=== PATIENT | male | born 1995 | race Caucasian/White ===

== ENCOUNTER 2025-02-10 20:37 | Emergency (ER) | payer MEDICAID, SELFPAY ==
--- OUTSIDE RECORDS SUMMARY | 2025-02-07 13:43 | XMS_ITS | Encounter Summary ---
Author Organization [facility] Address [address] [place] [address] Care Team Providers Care Molder Trimmer Name Role Phone Jewel Ceballos MD Primary Care Provider [phone] Reason for Visit * Reason Comments Dizziness Low Blood Sugar Encounter Details Date Type Department Care Team (Late st Contact Info) Description 02/07/2025 1:43 PM CDT - 02/07/2025 3:20 PM CDT Emergency [facility] [address] [place] [address] Hypoglycemia (Primary Dx) Discharge Disposition: Home or Self Care Social History Tobacco Use Types Packs/Day Years Used Date Smoking Tobacco: Never Smokeless Tobacco: Current Chew Tobacco Cessation:Ready to Q uit: No; Counseling Given: Not Answered Comments:Zyn pouches Alcohol Use Standard Drinks/Week Comments Never 0 (1 standard drink = 0.6 oz pur e alcohol) Sex and Gender Information Value Date Recorded Sex Assigned at Not on file Legal 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 Gender Identity Not on file Sexual Orientation Not on file documented as of this encounter Last Filed Vital Signs Vital Sign Reading Time Taken Comments Blood Pressure 132/76 02/07/2025 3:06 PM CDT Pulse - - Temperature 36.9 C (98.4 F) 02/07/2025 3:06 PM CDT Respiratory Rate 16 02/07/2025 3:06 PM CDT Oxygen Saturation 97% 02/07/2025 3:06 PM CDT Inhaled Oxygen Concentration - - Weight 82.8 kg (182 lb 9.6 oz) 02/07/2025 1:47 P M CDT Height 172.7 cm (5' 8 ) 02/07/2025 1:47 PM CDT Body Mass Index 27.76 02/07/2025 1:47 PM CDT documented in this encounter Discharge Instructions * Discharge Instructions* Yumiko Tabares FNP - 02/07/2025 3:00 PM CDT Discussed complex carbs and keeping a diet log for his PCP appointment next week. Avoid fasting It would bed beneficial to check blood sugar if episodes occurs again prior to giving a food for intervention. * Attachments The following attachments cannot be sent through Care Everywhere. * Hypoglycemia (Icelandic) documented in this encounter ED Notes * Ofelia Nation RN - 02/07/2025 3:19 PM CDT Pt states he was feeling off again so provider asked him to eat peanut butter crackers and educatedhim on need to eat complex carbs. Pt reports he dayna went from 225 lbs to current weight and eats healthy and exercises everyday. * Ofelia Nation RN - 02/07/2025 1:54 PM CDT Pt states that he was in [facility] this am when he got dizzy and felt like he was going to pass out. There was a nurse at [facility] and checked his blood sugar after he drank mountain dew and ate chips to try and feel better. Blood sugar was 85 after mountain dew and chips. Pt states he has not followed up with Dr. Ceballos yet. Reports eating 2 eggs, 2 sausage and sugar free oatmeal everyday for breakfast. * Gaby Sebastian - 02/07/2025 1:51 PM CDT POC glucose is 134. Notified Ofelia Nation RN. * Filipe Johnson MD - 02/07/2025 1:38 PM CDT HISTORY OF PRESENT ILLNESS 29-year-old male patient with a past medical history of pyelonephritis and KIRIT. Patient reports he had an episode in [facility] this a.m. where he felt very dizzy weak diaphoretic and endorses a near syncopal episode. Patient improved after drinking a small amount of Mountain Dew and intake of chips. Patient reports approximately 20 minutes after this intake he had a capillary fingerstick and blood glucose checked by a emergency response worker at [facility]. Patient reports at that time his blood glucose was 84 and symptoms are improving. The patient reports he has intentional weight loss and is closing monitoring his diet avoid carbs and sugars. Patient reports high levels of stress and previous . History provided by: The patient park interpreter used: No Arrived by: Private vehicle Arrived from: Home Dizziness Quality: Lightheadedness Severity: Moderate Duration: 2 weeks Timing: Intermittent Progression: Resolved Chronicity: Recurrent Relieved by: Food Worsened by: Standing up Associated symptoms: no blood in stool, no diarrhea, no headaches, no nausea and no shortness of breath Low Blood Sugar Diabetic status: Non-diabetic Associated symptoms: dizziness Associated symptoms: no shortness of breath PAST MEDICAL HISTORY REVIEWED MEDICAL: Patient has no past medical history on file. SURGICAL: Patient has no past surgical history on file. ALLERGIES Patient has no known allergies. PHYSICAL EXAM INITIAL VS BP: 131/71 (02/07/25 134), Heart Rate: 86 bpm (02/07/251346), Resp: 16 (02/07/251346), Pulse: (not recorded), Temp: 98.4 ??F (36.9 ??C) (02/07/251346), Temp src: Temporal (02/07/251346), SpO2: 94 % (02/07/251346), Height: 5' 8 (172.7 cm) (02/07/251346), Weight: 82.8 kg (182 lb 9.6 oz) (02/07/251346), BMI (Calculated): (!) 27.76 (02/07/251346) No LMP for male patient. Physical Exam Constitutional: Appearance: Normal appearance. HENT: Head: Normocephalic and atraumatic. Mouth/Throat: Mouth: Mucous membranes are moist. Eyes: Pupils: Pupils are equal, round, and reactive to light. Cardiovascular: Rate and Rhythm: Normal rate and regular rhythm. Pulmonary: Effort: Pulmonary effort is normal. Abdominal: General: Abdomen is flat. There is no distension. Palpations: Abdomen is soft. There is no mass. Tenderness: There is no abdominal tenderness. Musculoskeletal: General: Normal range of motion. Cervical back: Normal range of motion. Skin: General: Skin is warm. Capillary Refill: Capillary refill takes less than 2 seconds. Neurological: General: No focal deficit present. Mental Status: He is alert. Psychiatric: Mood and Affect: Mood normal. DIAGNOSTICS LAB: POC GLUCOSE - Abnormal Result Value GLUCOSE POC 134 (*) SPECIMEN SOURCE, GLUCOSE POC Whole Blood URINALYSIS WITH REFLEX MICROSCOPIC - Normal COLOR UA Yellow CLARITY UA Clear SPECIFIC GRAVITY UA 1.010 PH UA 6.5 LEUKOCYTE ESTERASE UA Negative NITRITE UA Negative PROTEIN UA Negative GLUCOSE UA Negative KETONES UA Negative UROBILINOGEN UA 0.2 BILIRUBIN UA Negative BLOOD UA Negative POC GLUCOSE GLUCOSE POC 88 SPECIMEN SOURCE, GLUCOSE POC Whole Blood RADIOLOGY: No orders to display EKG: PROCEDURES Procedures MEDICAL DECISION MAKING AND PLAN OF CARE ED Course as of 02/07/25 2159 Sun Feb 07, 2025 1425 Pendings UA [PH] 1442 Urine sample obtained. Pending results for DC. Educated on complex carbs daily [PH] 1451 Negative orthostatic blood pressure. Ua stable. [PH] ED Course User Index [PH] Yumiko Tabares FNP Medical Decision Making 29-year-old male patient presented with concerns of hypoglycemic event while at [facility] this a.m. Patient does endorse weight loss which is intentional avoiding sugary and carbohydrate foods. Patient was given Mountain Dew and chips approximately 20 minutes after intake blood glucose was taken by a personnel at [facility] noted to be 84. He was recommended he present to ED for evaluation. In presentation to ED blood sugar was 134 patient reports he feels fine at this time. Did review urine with pasthistory of pyelonephritis which was negative for infection ketones and glucose. Patient educated oncomplex carbohydrates and following up with his PCP next week. May be beneficial for behavioral health evaluation. Amount and/or Complexity of Data Reviewed Labs: ordered. Clinical Scoring & Consults There are no discharge medications for this patient. LAST VS BP: 132/76 (02/07/25 1506), Heart Rate: (!) 56 bpm (02/07/25 1506), Resp: 16 (02/07/25 1506), Pulse: (not recorded), Temp: 98.4 ??F (36.9 ??C) (02/07/25 1506), Temp src: Oral (02/07/25 1506), SpO2: 97 % (02/07/25 1506) CLINICAL IMPRESSION Diagnosis Diagnosis Comment Added By Time Added Hypoglycemia [E16.2] Yumiko Tabares FNP 02/07/2025 2:59 PM DISPOSITION, EDUCATION AND MEDICATION RECONCILIATION Medications reconciled. See after visit summary for patient education on discharged patients. ED Disposition ED Disposition Discharge Condition Stable User Yumiko Tabares FNP Date/Time Sun Feb 07, 2025 2:58 PM Comment -- ATTESTATION STATEMENTS This document was partially created using [employer] customer records division supervisor software (there can be inherent customer records division supervisor errors) using [employer]. Efforts have been done to assure the accuracy of the customer records division supervisor. If there is a discrepancy please let the author know. documented in this encounter Miscellaneous Notes * Gen AI SWETA - GENERATIVE AI HANDOFF NOTE - 02/09/2025 12:21 AM CDT ## ER_course: ## # DIAGNOSIS: Hypoglycemia. # The patient, a 29-year-old male with a history of pyelonephritis and acute kidney injury (KIRIT), presented to the emergency department after experiencing dizziness, weakness, and a near syncopal episode at [facility]. He reported improvement after consuming Mountain Dew and chips, with a subsequent blood glucose reading of 84. Upon evaluation in the ED, his blood glucose was 134, and he felt fine at that time. # During the ER visit, the patient was educated on the importance of consuming complex carbohydrates. He has been intentionally losing weight by avoiding sugary and carbohydrate foods. The urinalysis was negative for infection, ketones, and glucose. # Abnormal findings included an initial [id number] glucose reading of 134. The patient's blood pressure was stable, and orthostatic blood pressure was negative. ## Follow_up_orders: ## # The patient was advised to follow up with his primary care provider (PCP) next week. # Behavioral health evaluation may be beneficial. # Urine sample results are pending at discharge. # The patient was educated on the need to consume complex carbohydrates daily. ## Home_Situation: ## # The patient arrived at the emergency department by private vehicle from home. There are no noted transportation, caregiver support, financial, or language barriers affecting follow-up care. documented in this encounter Plan of Treatment Upcoming Encounters Date Type Department Care Team (Late st Contact Info) Description 02/12/2025 11:20 AM CDT [facility] [address] [place] [address] Gabby Núñez NP [address] [place] [address] documented as of this encounter Procedures Procedure Name Priority Date/Time Associated Diagnosis Comments POC GLUCOSE Stat 02/07/2025 3:13 PM CDT URINALYSIS W/REFLEX MICROSCOPIC Stat 02/07/2025 2:32 PM CDT POC GLUCOSE Stat 02/07/2025 1:49 PM CDT documented in this encounter Results * POC GLUCOSE (02/07/2025 3:13 PM CDT) GLUCOSE POC 88 74 - 99 mg/dL 02/07/2025 3:13 PM CDT [facility] SPECIMEN SOURCE, GLUCOSE POC Whole Blood 02/07/2025 3:13 PM CDT [facility] Blood, whole 02/07/2025 3:13 PM CDT 02/07/2025 3:21 PM CDT us Interface Provider Poct POINT OF CARE TESTING Fi nal Result [facility] CLIA # [id number] [address] [place] [id number] * URINALYSIS WITH REFLEX MICROSCOPIC (02/07/2025 2:32 PM CDT) COLOR UA Yellow Pale to Dark Yellow 02/07/2025 2:48 PM CDT [facility] CLARITY UA Clear Clear 02/07/2025 2:48 PM CDT [facility] SPECIFIC GRAVITY UA 1.010 1.003 - 1.035 02/07/2025 2:48 PM CDT [facility] PH UA 6.5 5.0 - 8.0 02/07/2025 2:48 PM CDT [facility] LEUKOCYTE ESTERASE UA Negative Negative 02/07/2025 2:48 PM CDT [facility] NITRITE UA Negative Negative 02/07/2025 2:48 PM CDT [facility] PROTEIN UA Negative Negative 02/07/2025 2:48 PM CDT [facility] GLUCOSE UA Negative Negative 02/07/2025 2:48 PM CDT [facility] KETONES UA Negative Negative 02/07/2025 2:48 PM CDT [facility] UROBILINOGEN UA 0.2 <2.0 mg/dL 2:48 PM CDT [facility] BILIRUBIN UA Negative Negative 02/07/2025 2:48 PM CDT [facility] BLOOD UA Negative Negative 02/07/2025 2:48 PM CDT [facility] Urine URINE SPECIMEN OBTAINED BY CLEAN CATCH PROCEDURE / Unknown 02/07/2025 2:32 PM CDT 02/07/2025 2:45 PM CDT us Yumiko Tabares COMMERCIAL LOAN CLOSER URINE ORDERABLES [id number] [address] [place] [id number] * (ABNORMAL) POC GLUCOSE (02/07/2025 1:49 PM CDT) GLUCOSE POC 134(H) 74 - 99 mg/dL 02/07/2025 1:49 PM CDT [facility] SPECIMEN SOURCE, GLUCOSE POC Whole Blood 02/07/2025 1:49 PM CDT [facility] Blood, whole 02/07/2025 1:49 PM CDT 02/07/2025 1:57 PM CDT us Interface Provider Poct POINT OF CARE TESTING Fi nal Result [facility] [id number] [address] [place] [id number] documented in this encounter Visit Diagnoses Diagnosis Hypoglycemia- Primary Hypoglycemia, unspecified documented in this encounter Active and Recently Administered Medications Care Teams Molder Trimmer Relationship Specialty Start Date End Date Jewel Ceballos MD [address] [id number] PCP - General Family Practice 06/17/24 documented as of this encounter
--- OUTSIDE RECORDS SUMMARY | 2025-02-09 21:50 | XMS_ITS | Encounter Summary ---
Author Organization [facility] Address [address] [place] [address] Care Team Providers Care Mathematical Sciences Professor Name Role Phone Jewel Ceballos MD Primary Care Provider [phone] Reason for Visit * Reason Comments Dizziness Anxiety Extremity Weakness Encounter Details Date Type Department Care Team (Late st Contact Info) Description 02/09/2025 9:50 PM CDT - 02/09/2025 11:34 PM CDT Emergency [facility] Emergency Medicine [address] [place] [address] Kaveh Christensen MD [address] [place] [address] [place] [address] Anxiety (Primary Dx) Discharge Disposition: Home or Self Care Social History Tobacco Use Types Packs/Day Years Used Date Smoking Tobacco: Never Smokeless Tobacco: Current Chew Comments:Zyn pouches Alcohol Use Standard Drinks/Week Comments Never 0 (1 standard drink = 0.6 oz pur e alcohol) Sex and Gender Information Value Date Recorded Sex Assigned at Not on file 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 Gender Identity Not on file Sexual Orientation Not on file documented as of this encounter Last Filed Vital Signs Vital Sign Reading Time Taken Comments Blood Pressure 131/76 02/09/2025 11:20 PM CDT Pulse 53 02/09/2025 11:20 PM CDT Temperature 37.1 C (98.8 F) 02/09/2025 11:20 PM CDT Respiratory Rate 19 02/09/2025 11:20 PM CDT Oxygen Saturation 99% 02/09/2025 11:20 PM CDT Inhaled Oxygen Concentration - - Weight 81.6 kg (180 lb) 02/09/2025 9:53 PM CDT Height 175.3 cm (5' 9 ) 02/09/2025 9:53 PM CDT Body Mass Index 26.58 02/09/2025 9:53 PM CDT documented in this encounter Discharge Instructions * Attachments The following attachments cannot be sent through Care Everywhere. * Anxiety Disorders: General Info (Croatian) documented in this encounter ED Notes * Randi Street RN - 02/09/2025 10:59 PM CDT Patient requested something to eat. MD Christensen notified who gave okay for food/drink. Patient provided peanut butter crackers and water * Nayeli Schneider RCP - 02/09/2025 10:30 PM CDT EKG completed. Results given to Dr. Christensen and scanned into [facility]. * Randi Street RN - 02/09/2025 10:26 PM CDT Radiology called for imaging. Respiratory therapy called for EKG * Randi Street RN - 02/09/2025 9:52 PM CDT Patient arrival to emergency room. Patient assisted to room via wheelchair. Patient reports he is feeling leg cramping/weakness and has concerns that he is having low blood sugar or an anxiety attack. Blood glucose obtained by staff. Patient reports he is also feeling nauseous at times. Patient reports he was concerned about his blood pressure being elevated earlier, vitals updated as he was placed on the monitor. Patient also reports he quit smoking marijuana 1 week ago, and he thinks this could be connected * Kaveh Christensen MD - 02/09/2025 9:50 PM CDT HISTORY OF PRESENT ILLNESS Harjit Santana, a 29 y.o. male presents to the ED with a Chief Complaint of Dizziness, Anxiety, and Extremity Weakness Subjective This patient is a 29-year-old white male who presents to the emergency department stating that his blood pressure was running high tonight and he felt somewhat weak. He states I felt like I was going to . Did not have any chest pain. Had some palpitations. Patient states he was here for dizziness about 3 weeks ago and had blood work done which was all normal. Patient states he has been having near syncopal episodes at times. Had 1 episode in latter day. Patient has been under a lot of stress recently with family and work. REVIEW OF SYSTEMS Review of Systems Constitutional: Negative for appetite change, chills, diaphoresis, fatigue and fever. HENT: Negative for congestion, ear pain, postnasal drip, rhinorrhea, sinus pressure and sore throat. Eyes: Negative for pain and visual disturbance. Respiratory: Negative for cough, chest tightness, shortness of breath and wheezing. Cardiovascular: Negative for chest pain, palpitations and leg swelling. Gastrointestinal: Negative for abdominal distention, abdominal pain, blood in stool, constipation, diarrhea, nausea and vomiting. Genitourinary: Negative for decreased urine volume, difficulty urinating, dysuria, flank pain, frequency, hematuria, testicular pain and urgency. Musculoskeletal: Negative for arthralgias, back pain, joint swelling, myalgias, neck pain and neck stiffness. Skin: Negative for rash. Neurological: Positive for dizziness and weakness. Negative for seizures, syncope, speech difficulty, light-headedness, numbness and headaches. Hematological: Negative for adenopathy. Psychiatric/Behavioral: Negative for behavioral problems, confusion, decreased concentration, dysphoric mood, self-injury, sleep disturbance and suicidal ideas. The patient is nervous/anxious. All other systems reviewed and are negative. PAST MEDICAL HISTORY REVIEWED MEDICAL: Patient has no past medical history on file. SURGICAL: Patient has no past surgical history on file. FAMILY: Patient's family history is not on file. SOCIAL: reports that he has never smoked. His smokeless tobacco use includes chew. He reports that he does not currently use drugs after having used the following drugs: Marijuana. He reports being sexually active and has had partner(s) who are female. He reports that he does not drink alcohol. No history on file. Social History Other Topics Concern Not on file ALLERGIES Patient has no known allergies. HOME MEDICATIONS There are no discharge medications for this patient. Objective PHYSICAL EXAM INITIAL VS BP: (!) 154/82 (02/09/252152), Heart Rate: 65 bpm (02/09/252152), Resp: 16 (02/09/252152), Pulse: 65 (02/09/252152), Temp: 98.8 ??F (37.1 ??C) (02/09/252152), Temp src: Temporal (02/09/252152),SpO2: 97 % (02/09/252152), Height: 5' 9 (175.3 cm) (02/09/252152), Weight: 81.6 kg (180 lb) (02/09/252152), BMI (Calculated): (!) 26.55 (02/09/252152) No LMP for male patient. Physical Exam Vitals and nursing note reviewed. Constitutional: General: He is not in acute distress. Appearance: Normal appearance. He is not ill-appearing. HENT: Head: Normocephalic and atraumatic. Eyes: Conjunctiva/sclera: Conjunctivae normal. Pupils: Pupils are equal, round, and reactive to light. Cardiovascular: Rate and Rhythm: Normal rate and regular rhythm. Pulmonary: Effort: Pulmonary effort is normal. No respiratory distress. Breath sounds: Normal breath sounds. Abdominal: General: Abdomen is flat. Bowel sounds are normal. Palpations: Abdomen is soft. Tenderness: There is no abdominal tenderness. Musculoskeletal: General: No tenderness. Normal range of motion. Skin: General: Skin is warm and dry. Neurological: General: No focal deficit present. Mental Status: He is alert and oriented to person, place, and time. Psychiatric: Mood and Affect: Mood normal. Behavior: Behavior normal. DIAGNOSTICS LAB: CBC WITH DIFFERENTIAL - Abnormal Result Value WBC 9.1 RBC 5.40 HEMOGLOBIN 14.6 HEMATOCRIT 42.7 MCV 79.1 MCH 27.0 MCHC 34.2 RDW 12.5 RDW-STDEV 35.5 (*) PLATELETS 213 MPV 10.2 NEUTROPHILS 74 (*) LYMPHOCYTES 18 (*) MONOCYTES 6 EOSINOPHILS 2 BASOPHILS 0 IMMATURE GRANULOCYTES 0 NEUTROPHIL ABSOLUTE 6.73 (*) LYMPHOCYTE ABSOLUTE 1.65 MONOCYTE ABSOLUTE 0.56 EOSINOPHIL ABSOLUTE 0.14 BASOPHILS ABSOLUTE 0.04 IMMATURE GRANULOCYTES ABSOLUTE 0.02 COMPREHENSIVE METABOLIC PANEL - Abnormal SODIUM 140 POTASSIUM 3.7 CHLORIDE 102 CO2 25 CALCIUM 9.7 BUN 15 CREATININE 0.96 GLUCOSE 106 (*) TOTAL PROTEIN 7.4 ALBUMIN 4.9 BILIRUBIN TOTAL 0.4 ALKALINE PHOSPHATASE 67 AST 22 ALT 29 GFR >60 ANION GAP 13 POC GLUCOSE - Abnormal GLUCOSE POC 118 (*) SPECIMEN SOURCE, GLUCOSE POC Whole Blood BRAIN NATRIURETIC PEPTIDE, BNP OR PROBNP - Normal PROBNP, N TERMINAL <36 RADIOLOGY: No orders to display EKG: PROCEDURES Procedures MEDICAL DECISION MAKING AND PLAN OF CARE Medical Decision Making Patient's exam is benign. EKG normal. Chest x-ray normal. CBC and CMP normal. BNP less than 36. Blood sugar 118. Patient's symptoms are likely related to anxiety. I recommended he follow-up with his primary care provider for further workup and management. He was discharged in stable condition. Amount and/or Complexity of Data Reviewed Radiology: ordered. ECG/medicine tests: ordered. Clinical Scoring & Consults There are no discharge medications for this patient. LAST VS BP: 131/76 (02/09/252319), Heart Rate: (!) 55 bpm (02/09/252319), Resp: 19 (02/09/252319), Pulse: (!) 53 (02/09/252319), Temp: 98.8 ??F (37.1 ??C) (02/09/252319), Temp src: Temporal (02/09/252319), SpO2: 99 % (02/09/252319) CLINICAL IMPRESSION Diagnosis Diagnosis Comment Added By Time Added Anxiety [F41.9] Kaveh Christensen MD 02/09/2025 11:25 PM DISPOSITION, EDUCATION AND MEDICATION RECONCILIATION Medications reconciled. See after visit summary for patient education on discharged patients. ED Disposition ED Disposition Discharge Condition Stable User Kaveh Christensen MD Date/Time SatFeb 09, 2025 11:24 PM Comment -- ATTESTATION STATEMENTS documented in this encounter Miscellaneous Notes * Gen AI SWETA - GENERATIVE AI HANDOFF NOTE - 02/10/2025 10:38 PM CDT ## ER_course: ## # DIAGNOSIS: Anxiety. Harjit Santana, a 29-year-old male, presented to the ED with dizziness, anxiety, and extremity weakness. He reported high blood pressure, leg cramping, weakness, and nausea. He was concerned about low blood sugar or an anxiety attack. The patient had a history of stress related to family and work and had recently quit smoking marijuana. # During the ER visit, the following abnormalities were noted: Elevated blood pressure at 154/82, BMI of 26.55, and elevated glucose levels (POC glucose 118). The CBC showed elevated neutrophils at 74% and an absolute neutrophil count of 6.73. The EKG and chest X-ray were normal. The patient's symptoms were attributed to anxiety, and he was discharged in stable condition. ## Follow_up_orders: ## # The patient was advised to follow up with his primary care provider for further workup and management of anxiety. No new prescriptions or changes to home medications were made. No pending tests or imaging were noted at discharge. ## Home_Situation: ## # No specific factors potentially impairing follow-up care were documented. The patient did not report any issues with transportation, caregiver support, finances, or language barriers. documented in this encounter Plan of Treatment Upcoming Encounters Date Type Department Care Team (Late st Contact Info) Description 02/12/2025 11:20 AM CDT Office Visit [facility] [address] [place] [address] Gabby Núñez NP [address] [place] [address] documented as of this encounter Procedures Procedure Name Priority Date/Time Associated Diagnosis Comments XR CHEST PA OR AP 1 VW Stat 5 10:49 PM CDT CBC WITH DIFFERENTIAL Stat 02/09/2025 10:47 PM CDT BRAIN NATRIURETIC PEPTIDE, BNP OR PROBNP Stat 02/09/2025 10:47 PM CDT COMPREHENSIVE METABOLIC PANEL Stat 02/09/2025 10:47 PM CDT POC GLUCOSE Stat 02/09/2025 9:56 PM CDT documented in this encounter Results * XR CHEST PA OR AP 1 VW (02/09/2025 10:49 PM CDT) Anatomical Region Laterality Modality Chest Computed Radiogr aphy 02/09/2025 10:4 9 PM CDT Impressions 02/10/2025 12:38 AM CDT IMPRESSION: No evidence of acute cardiopulmonary disease. Narrative 02/10/2025 12:38 AM CDT EXAM: XR CHEST PA OR AP 1 VW DATE/TIME OF EXAM: 02/09/2025 10:49 PM REASON FOR EXAM: Palpitations DIAGNOSIS: See Reason for Exam COMPARISON: None. FINDINGS: - Lines/tubes: None. - Cardiomediastinal: Contours are within normal limits. - Lungs/pleura: Radiographically the lungs appear clear. Hemidiaphragms are well visualized; no appreciable pleural effusion or pneumothorax. - Bones and soft tissues: No acute abnormalities. - Additional comments: None. Procedure Note Tin Santiago MD - 02/10/2025 EXAM: XR CHEST PA OR AP 1 VW DATE/TIME OF EXAM: 02/09/2025 10:49 PM REASON FOR EXAM: Palpitations DIAGNOSIS: See Reason for Exam COMPARISON: None. FINDINGS: - Lines/tubes: None. - Cardiomediastinal: Contours are within normal limits. - Lungs/pleura: Radiographically the lungs appear clear. Hemidiaphragms are well visualized; no appreciable pleural effusion or pneumothorax. - Bones and soft tissues: No acute abnormalities. - Additional comments: None. IMPRESSION: No evidence of acute cardiopulmonary disease. Kaveh Christensen MD DIAGNOSTIC IMAGING ORDER [place] Final Result * BRAIN NATRIURETIC PEPTIDE, BNP OR PROBNP (02/09/2025 10:47 PM CDT) PROBNP, N TERMINAL <36 0 - 125 pg/mL 02/09/2025 11:13 PM CDT [facility] Comment: INTERPRETIVE COMMENT based on diagnosis: Diagnostic NT pro-BNP cutoffs for Heart Failure in the absence of renal failure is suggested for the following ranges <75 years: <125 pg/mL >=75 years: <450 pg/mL Exclusionary rule out cut-point for Acute Decompensated Heart Failure(ADHF) All ages: <300 pg/mL Diagnostic NT pro-BNP cutoffs for Acute Decompensated Heart Failure(ADHF) in the absence of renal failure is suggested for the following ages <50 years: > 450 pg/mL 50-75 years: > 900 pg/mL >75 years: >1800 pg/mL Blood BLOOD SPECIMEN / Unknown Collection / Unknown 02/09/2025 10:47 PM CDT 02/09/2025 10:55 PM CDT us Kaveh Christensen MD CHEMISTRY ORDERABLES Fin al [id number] [address] [place] [address] * (ABNORMAL) COMPREHENSIVE METABOLIC PANEL (02/09/2025 10:47 PM CDT) Pathologist [facility] SODIUM 140 136 - 145 mmol/L 02/09/2025 11:13 PM CDT [facility] POTASSIUM 3.7 3.5 - 5.1 mmol/L 02/09/2025 11:13 PM CDT [facility] CHLORIDE 102 98 - 107 mmol/L 02/09/2025 11:13 PM CDT [facility] CO2 25 22 - 29 mmol/L 02/09/2025 11:13 PM CDT [facility] CALCIUM 9.7 8.6 - 10.0 mg/dL 02/09/2025 11:13 PM T [facility] BUN 15 6 - 20 mg/dL 02/09/2025 11:13 PM [facility] CREATININE 0.96 0.67 - 1.17 mg/dL 02/09/2025 11:13 PM [facility] GLUCOSE 106(H) 74 - 99 mg/dL 02/09/2025 11:13 PM [facility] TOTAL PROTEIN 7.4 6.6 - 8.7 g/dL 02/09/2025 11:13 PM [facility] ALBUMIN 4.9 3.5 - 5.2 g/dL 02/09/2025 11:13 PM [facility] BILIRUBIN TOTAL 0.4 0.0 - 1.2 mg/dL 02/09/2025 11:13 PM [facility] ALKALINE PHOSPHATASE 67 40 - 129 U/L 02/09/2025 11:13 PM [facility] AST 22 0 - 50 U/L 02/09/2025 11:13 PM [facility] ALT 29 0 - 50 U/L 02/09/2025 11:13 PM [facility] GFR >60 >=60 mL/min/1.7 3 sq meter 02/09/2025 11:13 PM [facility] Comment:eGFR calculated with 2020 CKD-EPI equation. Vegetarian diet, extremely high or low muscle mass, and may affect results. Cystatin C with Glomerular Filtration Rate is a suitable alternative for these patients. ANION GAP 13 5 - 20 mmol/L 02/09/2025 11:13 PM [facility] Blood BLOOD SPECIMEN / Unknown Collection / Unknown 02/09/2025 10:47 PM CDT 02/09/2025 10:55 PM CDT us Kaveh Christensen MD CHEMISTRY ORDERABLES Fin al Result [facility] CLIA # [id number] [address] [place] [id number] * (ABNORMAL) CBC WITH DIFFERENTIAL (02/09/2025 10:47 PM CDT) WBC 9.1 4.2 - 9.1 K/uL 02/09/2025 11:01 PM [facility] RBC 5.40 4.63 - 6.08 M/uL 02/09/2025 11:01 PM [facility] HEMOGLOBIN 14.6 13.7 - 17.5 g/dL 02/09/2025 11:01 PM [facility] HEMATOCRIT 42.7 40.1 - 51.0 % 02/09/2025 11:01 PM [facility] MCV 79.1 79.0 - 92.2 fL 02/09/2025 11:01 PM [facility] MCH 27.0 25.7 - 32.2 pg 02/09/2025 11:01 PM [facility] MCHC 34.2 32.3 - 36.5 g/dL 02/09/2025 11:01 PM [facility] RDW 12.5 11.0 - 14.5 % 02/09/2025 11:01 PM [facility] RDW-STDEV 35.5(L) 36.9 - 56.9 fL 02/09/2025 11:01 PM [facility] PLATELETS 213 130 - 400 K/uL 02/09/2025 11:01 PM [facility] MPV 10.2 10.0 - 14.8 fL 02/09/2025 11:01 PM [facility] NEUTROPHILS 74(H) 34 - 68 % 02/09/2025 11:01 PM [facility] LYMPHOCYTES 18(L) 22 - 53 % 02/09/2025 11:01 PM [facility] MONOCYTES 6 5 - 12 % 02/09/2025 11:01 PM [facility] EOSINOPHILS 2 1 - 7 % 02/09/2025 11:01 PM [facility] BASOPHILS 0 0 - 1 % 02/09/2025 11:01 PM [facility] IMMATURE GRANULOCYTES 0 % 02/09/2025 11:[address] [facility] NEUTROPHIL ABSOLUTE 6.73(H) 1.78 - 5.38 K/uL 02/09/2025 11:01 PM CDT [facility] LYMPHOCYTE ABSOLUTE 1.65 1.20 - 3.40 K/uL 02/09/2025 11:01 PM T [facility] MONOCYTE ABSOLUTE 0.56 0.30 - 0.82 K/uL 02/09/2025 11:01 PM [facility] EOSINOPHIL ABSOLUTE 0.14 0.04 - 0.54 K/uL 02/09/2025 11:01 PM T [facility] BASOPHILS ABSOLUTE 0.04 0.01 - 0.08 K/uL 02/09/2025 11:01 PM [facility] IMMATURE GRANULOCYTES ABSOLUTE 0.02 K/uL 02/09/2025 11:01 PM [facility] Blood BLOOD SPECIMEN / Unknown Collection / Unknown 02/09/2025 10:47 PM CDT 02/09/2025 10:55 PM CDT us Kaveh Christensen MD HEMATOLOGY ORDERABLES Fi nal Result [facility] CLIA # [id number] [address] [place] [address] * (ABNORMAL) POC GLUCOSE (02/09/2025 9:56 PM CDT) GLUCOSE POC 118(H) 74 - 99 mg/dL 02/09/2025 9:56 PM CDT [facility] SPECIMEN SOURCE, GLUCOSE POC Whole Blood 02/09/2025 9:56 PM CDT [facility] Blood, whole 02/09/2025 9:56 PM CDT 02/09/2025 10:04 PM CDT us Interface Provider Poct POINT OF CARE TESTING Fi nal Result [facility] CLIA # [id number] [address] [place] [address] [id number] documented in this encounter Visit Diagnoses Diagnosis Anxiety- Primary Anxiety state, unspecified documented in this encounter Care Teams Mathematical Sciences Professor Relationship Specialty Start Date End Date Jewel Ceballos MD [address] [address] PCP - General Family Practice 06/17/24 documented as of this encounter
--- OUTSIDE RECORDS SUMMARY | 2025-02-10 15:20 | XMS_ITS | Encounter Summary ---
Author Organization [facility] Address [address] [place] [address] Care Team Providers Care Supervisor Coil Winding Name Role Phone Jewel Ceballos MD Primary Care Provider [phone] [phone] Reason for Referral * Cardiology Testing (Routine) - Open Specialty Diagnoses / Procedures Referred By Kel chiang Referred To Contact Respiratory Therapy Diagnoses Anxiety state Procedures HOLTER MONITOR Griselda Garcia FNP [address] [place] [phone] Phone: tel: fax: [facility] Res[facility] [place] [address] [address] Phone: tel: fax: Referral ID Status Reason Start Date Expiration Date Visits Re quested Visits Authorized [id number] Open 02/10/2025 03/13/2026 1 1 Reason for Visit * Reason Comments ER Follow Up Blood Sugar Problem Encounter Details Date Type Department Care Team (Late st Contact Info) Description 02/10/2025 3:20 PM CDT Office Visit [facility] [place] [address] [address] Griselda Garcia FNP [address] [place] [phone] Anxiety state (Primary Dx); Dysuria; Hypoglycemia Social History Tobacco Use Types Packs/Day Years Used Date Smoking Tobacco: Never Smokeless Tobacco: Current Chew Comments:Zyn pouches Alcohol Use Standard Drinks/Week Comments Never 0 (1 standard drink = 0.6 oz pur e alcohol) Sex and Gender Information Value Date Recorded Sex Assigned at Not on file Legal 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 Gender Identity Not on file Sexual Orientation Not on file documented as of this encounter Last Filed Vital Signs Vital Sign Reading Time Taken Comments Blood Pressure 138/79 02/10/2025 3:20 PM CDT Pulse 58 02/10/2025 3:20 PM CDT Temperature 36.7 C (98 F) 02/10/2025 3:20 PM CDT Respiratory Rate 16 02/10/2025 3:20 PM CDT Oxygen Saturation 100% 02/10/2025 3:20 PM CDT Inhaled Oxygen Concentration - - Weight 82.6 kg (182 lb 3.2 oz) 02/10/2025 3:20 P M CDT Height 175.3 cm (5' 9 ) 02/10/2025 3:20 PM CDT Body Mass Index 26.91 02/10/2025 3:20 PM CDT documented in this encounter Progress Notes * Griselda Garcia, EMT BASIC - 02/10/2025 3:[address] [facility] [place] 02/10/2025 Subjective: Harjit Santana is a 29 y.o. male who comes today for evaluation of ER Follow Up and Blood Sugar Problem . History of Present Illness The patient is a 29-year-old male who presents today with concerns about blood sugar issues and a possible urinary tract infection (UTI). He was seen in the ER last night for concerns about his blood sugar, but his blood sugar and other labs were normal. He was offered reassurance and discharged home. A chest x-ray performed in the ER did not show any concerning findings. He was also seen in the ER on 02/07/2025, when he experienced l ightheadedness and dizziness during taoist. At that time, he was given Mountain Dew and crackers, which resolved his symptoms. A urinalysis (UA) performed during that visit was normal. His main symptoms are dizziness, anxiety, and weakness. He has not had a Holter monitor and may be experiencing anabnormal heart rhythm. His EKG from last night's ER visit showed sinus bradycardia with a heart rate of 56. Today, his heart rate is 58. He may benefit from a Holter monitor to determine if he is becoming bradycardic. He reports that his symptoms began approximately 3 weeks ago with episodes of dizziness and unusualsensations. Despite being advised to consult with Dr. Ceballos, he was unable to do so due to work commitments. He recalls an incident last Saturday where he fainted at a movie theater but recovered after eating. A similar episode occurred the following day at [employer], where he experienced shaking, difficulty walking, paleness, and clamminess. His blood sugar was reported to be around 50 at that time. He was taken to the ER by ambulance, where he was given Mountain Dew, Sprite, and potato chips, which raised his blood sugar to 86. He has been monitoring his blood sugar at home since Saturday, withreadings ranging from 88 to 134. He also reports feeling jittery, almost like having a panic or anxiety attack, and experiencing chest pain and severe leg cramps. He describes a lack of appetite despite feeling hungry, and a sensation of impending vomiting when attempting to eat. He has not experienced these symptoms for several months. He has a history of borderline blood sugar levels as a childbut has not had any recent issues until now. He reports no urinary symptoms but mentions temporary right-sided back pain while showering today. He has a history of high-stress work environments and a recent kidney infection. He has been off cannabis for about 8 to 10 days after using it daily for 2 years. He also consumed a cup of coffee yesterday, which is unusual for him as he had previously eliminated caffeine from his diet. 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 Coffee/Tea/Caffeine-containing Drinks: He consumed a cup of coffee yesterday after eliminating caffeine from his diet. Review of Systems Constitutional: Negative for chills, fever and malaise/fatigue. HENT: Negative for congestion, ear pain and sore throat. Eyes: Negative for blurred vision. Respiratory: Negative for cough and shortness of breath. Cardiovascular: Negative for chest pain. Gastrointestinal: Negative for abdominal pain, constipation, diarrhea, nausea and vomiting. Genitourinary: Negative for dysuria and urgency. Musculoskeletal: Negative for joint pain and myalgias. Neurological: Positive for dizziness. Negative for headaches. Psychiatric/Behavioral: The patient is nervous/anxious. All other systems reviewed and are negative. Objective: Vitals: 02/10/25 1520 Temp: 98 ??F (36.7 ??C) Pulse: (!) 58 BP: 138/79 Resp: 16 SpO2: 100% Physical Exam Constitutional: General: He is not in acute distress. Appearance: Normal appearance. He is not ill-appearing or toxic-appearing. HENT: Head: Normocephalic and atraumatic. Right Ear: Tympanic membrane normal. Left Ear: Tympanic membrane normal. Nose: Nose normal. Mouth/Throat: Mouth: Mucous membranes are moist. Eyes: Extraocular Movements: Extraocular movements intact. Pupils: Pupils are equal, round, and reactive to light. Cardiovascular: Rate and Rhythm: Normal rate and regular rhythm. Pulses: Normal pulses. Heart sounds: Normal heart sounds. Pulmonary: Effort: Pulmonary effort is normal. No respiratory distress. Breath sounds: Normal breath sounds. No decreased air movement. No decreased breath sounds, wheezing, rhonchi or rales. Abdominal: General: Abdomen is flat. Palpations: Abdomen is soft. Tenderness: There is no abdominal tenderness. There is no guarding. Musculoskeletal: General: Normal range of motion. Cervical back: Normal range of motion and neck supple. Skin: General: Skin is warm and dry. Neurological: General: No focal deficit present. Mental Status: He is alert and oriented to person, place, and time. Psychiatric: Mood and Affect: Mood normal. Behavior: Behavior normal. Past medical history, surgical history and social history reviewed. No past medical history on file. Procedures Assessment/Plan: ICD-10-CM ICD-9-CM 1. Anxiety state F41.1 300.00 HOLTER MONITOR busPIRone (BUSPAR) 7.5 mg Tablet 2. Dysuria R30.0 788.1 POC URINALYSIS DIPSTICK AUTOMATED 3. Hypoglycemia E16.2 251.2 Assessment & Plan 1. Blood sugar issues. - Experiencing dizziness, anxiety, and weakness, which may be related to blood sugar fluctuations. - Advised to consume high carbohydrate meals to manage potential hypoglycemia. - Holter monitor will be ordered to evaluate for any abnormal heart rhythms that could be contributing to his symptoms. 2. Urinary tract infection (UTI). - Urine analysis is essentially normal with only a trace amount of blood, which is not uncommon. - Physical exam findings indicate no further action is required unless symptoms persist or worsen. - Reviewed urine results and confirmed trace blood presence. - No treatment required at this time. 3. Anxiety. - Reports anxiety and panic attacks - BuSpar (buspirone) will be prescribed to help manage his anxiety. Medication sent to pharmacy. - Follow up after holter monitor as below 4. Sinus bradycardia. - EKG showed sinus bradycardia at 56 bpm, and heart rate today is 58 bpm. - Physical exam findings indicate slightly below normal heart rate. - Holter monitor will be ordered to determine if he is experiencing symptomatic bradycardia. - If the Holter monitor shows significant bradycardia, further treatment options will be considered. RUDY Long- This note was automatically generated by a Generative AI technology ([employer]), reviewed, edited, and finalized by RUDY Long. The author of this note, patient (or authorized medical office representative), and all other persons present consent to the audio recording of this visit for charting documentation purposes. documented in this encounter Plan of Treatment Upcoming Encounters Date Type Department Care Team (Late st Contact Info) Description 02/12/2025 11:20 AM CDT Office Visit [facility] [address] [place] [address] Gabby Núñez NP [address] [place] [address] Scheduled Orders Name Type Priority Associated Diagnoses Orde r Schedule HOLTER MONITOR Cardiac Services Routine Anxiety state Expected: 02/10/2025 (Approximate), Expires: 03/13/2025 documented as of this encounter Procedures Procedure Name Priority Date/Time Associated Diagnosis Comments POC URINALYSIS DIPSTICK AUTOMATED Routine 02/10/2025 4:13 PM CDT Dysuria documented in this encounter Results * (ABNORMAL) POC URINALYSIS DIPSTICK AUTOMATED (02/10/2025 4:13 PM CDT) COLOR UA POC Yellow Pale to Dark Yellow [facility] CLARITY UA POC Clear Clear, Other [facility] GLUCOSE UA POC Negative Negative, Normal [facility] BILIRUBIN UA POC Negative Negative [facility] KETONES UA POC Negative Negative [facility] SPECIFIC GRAVITY UA POC 1.025 1.000 - 1.030 [facility] BLOOD UA POC Trace(A) Negative [facility] C LINIC [facility] PH UA POC 7.0 5.0 - 8.0 [facility] CLIN IC [facility] PROTEIN UA POC Negative Negative [facility] UROBILINOGEN UA POC 0.2 <2.0 mg/dL [facility] NITRITE UA POC Negative Negative [facility] LEUKOCYTE ESTERASE UA POC Negative Negative [facility] KIT [address] POC [phone] [facility] KIT EXP DATE POC 01/28/2026 [facility] Urine 02/10/2025 4:13 PM CDT Griselda Garcia EMT BASIC POINT OF CARE TESTING Final Result Performing Organization Address City/State/[facility] Co de Phone Number [facility] CLIA# [id number] [address] [place], [place] [id number] documented in this encounter Visit Diagnoses Diagnosis Anxiety state- Primary Anxiety state, unspecified Dysuria Hypoglycemia Hypoglycemia, unspecified documented in this encounter Care Teams Supervisor Coil Winding Relationship Specialty Start Date End Date Jewel Ceballos MD [address] [place] [phone] PCP - General Family Practice 06/17/24 documented as of this encounter
[2025-02-10 20:39] VITALS: BP 123/90; PULSE 57; RESP 18; TEMP 36.8; O2SAT 100
--- NOTE | 2025-02-10 20:45 | ECG_ITS ---
[facility] Test Date: 2025-02-10 Pat Name: Harjit Santana Department: Room: Gender: Male Manager Patient: : 1995 Requested By: Joe Locke Order Number: [id number] Reading MD: Measurements Intervals [place] Rate: 67 P: 46 AL: 133 QRS: 87 QRSD: 90 T: 68 QT: 387 QTc: 409 Interpretive Statements SINUS RHYTHM [email or web address]
--- NOTE | 2025-02-10 21:32 | XRR_ITS ---
PROCEDURE INFORMATION: Exam: XR Chest Exam date and time: 02/10/2025 11:29 PM Age: 29 years old Clinical indication: Pain; Chest pressure; Additional info: Chest pain TECHNIQUE: Imaging protocol: Radiologic exam of the chest. Views: 1 view. COMPARISON: No relevant prior studies available. FINDINGS: Lungs: Unremarkable. No consolidation. Pleural spaces: Unremarkable. No pleural effusion. No pneumothorax. Heart/Mediastinum: Unremarkable. No cardiomegaly. Bones/joints: Unremarkable. XR/XR chest 1V portable [id number] IMPRESSION: No acute findings.
[2025-02-10 22:06] LABS: Hematocrit 43.9 % (37-53); Hemoglobin 15.00 g/dL (11.27-16.99); Mean Corpuscular HGB Conc 34.2 g/dL (30-55); Mean Corpuscular Hemoglobin 28.1 pg (27-33); Mean Corpuscular Volume 82.2 fl (82-101); Nucleated Red Blood Cells % 0 %; Platelet Count 203 10^3/cmm (157-399); Red Blood Count 5.34 10^6/uL (3.85-5.65); White Blood Count 8.05 10^3/uL (3.29-11.43)
[2025-02-10 22:09] LABS: Troponin(5th) Baseline < 6 ng/L (0-15)
[2025-02-10 22:14] LABS: Alanine Aminotransferase 23 U/L (0-41); Albumin Level 4.9 g/dL (3.5-5.2); Alkaline Phosphatase 67 U/L (40-130); Anion Gap 14.3 (5-19); Aspartate Amino Transferase 15 U/L (0-40); Blood Urea Nitrogen 10 mg/dL (6-20); Calcium 9.5 mg/dL (8.5-10.5); Carbon Dioxide 28 mmol/L (22-29); Chloride 103 mmol/L (98-107); Globulin 2.3 g/dL (1.3-4.6); Glucose 97 mg/dL (65-115); Osmolality Calculated 291 mOsm/kg (285-295); Potassium 4.3 mmol/L (3.5-5.1); Sodium 141 mmol/L (136-145); Total Protein 7.2 g/dL (6.6-8.7)
--- OUTSIDE RECORDS SUMMARY | 2025-02-10 23:06 | XMS_ITS | Encounter Summary ---
Author Organization [facility] Address [address] [place] [address] Care Team Providers Care Car Ferry Captain Name Role Phone Jewel Ceballos MD Primary Care Provider [phone] [phone] Encounter Details Date Type Department Care Team (Latest Contact Info) Description 07/21/2024 Results Follow-Up [facility] [address] [phone] Arabella Clarke, 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 Gender Identity Not on file Sexual Orientation Not on file documented as of this encounter Plan of Treatment Upcoming Encounters Date Type Department Care Team (Late st Contact Info) Description 02/12/2025 11:20 AM CDT Office Visit [facility] [address] [place] [phone] Gabby Núñez NP [address] [place] [address] documented as of this encounter Visit Diagnoses Not on filedocumented in this encounter Care Teams Car Ferry Captain Relationship Specialty Start Date End Date Jewel Ceballos MD [address] [address] PCP - General Family Practice 06/17/24 documented as of this encounter
--- OUTSIDE RECORDS SUMMARY | 2025-02-10 23:06 | XMS_ITS | Clinical Summary ---
Author Organization [facility] Address [address] [address] Phone Care Team Providers Care Senior Group Manager Name Role Phone Jewel Ceballos MD Primary Care Provider [phone] Allergies No known active allergies Medications busPIRone (BUSPAR) 7.5 mg TabletIndicatio ns:Anxiety state Take 1 Tablet (7.5 mg) by mouth 2 times daily. Follow up in 1 week after starting to discuss titrating up if needed. 60 Tablet Active Active Problems Problem Noted Date Diagnosed Date Serum calcium elevated 01/27/2025 Vertigo 01/27/2025 Pyelonephritis 07/08/2024 KIRIT (acute kidney injury) 07/08/2024 Encounters Date Type Department Care Team Description 02/10/2025 3:20 PM CDT Office Visit [address] [phone] Griselda Garcia FNP Anxiety state (Primary Dx); Dysuria; Hypoglycemia 02/10/[address] [address] Jewel Ceballos MD Wants Appointment 02/09/2025 9:50 PM CDT - 02/09/2025 11:34 PM CDT Emergency [facility] Emergency Medicine [address] [phone] Kaveh Christensen MD Anxiety (Primary Dx) Discharge Disposition: Home or Self Care 02/09/2025 Travel 02/07/2025 1:43 PM CDT - 02/07/2025 3:20 PM CDT Emergency [facility] [address] [facility] [address] [place] [address] Hypoglycemia (Primary Dx) Discharge Disposition: Home or Self Care 02/07/2025 Travel 02/03/2025 External Device Data STL ABSTRACTION Provider, Abstract 02/02/2025 External Device Data ST[place] ABSTRACTION Provider, Abstract 02/02/2025 External Device Data ST[place] ABSTRACTION Provider, Abstract 01/28/2025 Results Follow-Up [facility] [address] [facility] [address] [place] [phone] Alessia Madrid RN T4 FREE, PTH INTACT, VITAMIN D 25 HYDROXY, T3 01/27/2025 10:47 AM CDT - 01/27/2025 2:05 PM CDT [address] [place] [address] Filipe Johnson MD Vertigo (Primary Dx); Serum calcium elevated Discharge Disposition: Home or Self Care 01/27/2025 Travel 12/22/2024 External Device Data ST[place] ABSTRACTION Provider, Abstract 12/22/2024 External Device Data ST[place] ABSTRACTION Provider, Abstract 12/01/2024 External Device Data ST[place] ABSTRACTION Provider, Abstract 11/19/2024 External Device Data ST[place] ABSTRACTION Provider, Abstract 11/18/2024 12:38 PM CDT - 11/18/2024 12:58 PM CDT Emergency [facility] [address] [facility] [address] [place] [address] Discharge Disposition: Left without being seen 11/18/2024 External Device Data STL ABSTRACTION Provider, Abstract 11/10/2024 External Device Data STL ABSTRACTION Provider, Abstract from Last 3 Months Immunizations Immunization Administration Dates Next Due (ADACEL/BOOSTRIX)(10 YR UP) TDAP VACCINE, 0.5ML, IM 05/08/2024,04/02/2013 (IPOL)(6 WKS AND UP) POLIOVI BASILIO VACCINE, INACTIVATED (IPV), 3 DOSE, SUBCUT OR IM 04/02/2013 (M-M-R II/PRIORIX)(12 MO UP) MEASLES, MUMPS AND RUBELLA VIRUS VACCINE, 0.5 ML IM/SUBCUT 05/06/2013,04/06/2013 (MENACTRA)(9 MO-55 YR) MENIN GOCOCCAL POLYSACCHARIDE A, C, Y AND W-135 DIPTHERIA TOXOID CONJUGATE VACCINE, (PF), 0.5ML, IM 04/02/2013 (TYPHIM )(2 YRS UP) TYPHOI D CAPSULAR POLYSACCHARIDE VACCINE, 0.5 ML, IM 08/28/2013 (VARIVAX)(12 MOS UP)VARICELL A VIRUS VACCINE (PF) 0.5 ML, SUB CUT 05/06/2013,04/06/2013 Adenovirus Vaccine Type 4 04/06/2013 Hepatitis A Vaccine 10/14/2013,04/06/2013 INFLUENZA VACCINE QUADRIVALE NT 2-49 YRS NASAL 05/16/2015,05/03/2014,04/06/2013 INFLUENZA VACCINE QUADRIVALE NT 6 MOS UP PF IM 06/05/2021,03/21/2020,06/01/2019,07/12,03/30/2016 Influenza Seasonal Unspecifi ed Formulation PF IM 07/13/2018,05/13/2017 Social History Tobacco Use Types Packs/Day Years Used Date Smoking Tobacco: Never Smokeless Tobacco: Current Chew Tobacco Cessation:Ready to Q uit: No; Counseling Given: Not Answered Comments:Liana pelletier Alcohol Use Standard Drinks/Week Comments Never 0 (1 standard drink = 0.6 oz pur e alcohol) Sex and Gender Information Value Date Recorded Sex Assigned at Not on file 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 [address] [place] [address] Gabby Núñez, FALGUNI [address] [place] [address] Health Maintenance Due Date Last Done Comments HPV VACCINES (1 - Male 3-dos e series) 2010 HEPATITIS B VACCINES (1 of 3 - 19+ 3-dose series) 2014 COVID-19 Vaccine (3 - 2023-2 5 season) 2024 12/12/2020, 11/03/2020 INFLUENZA VACCINE (#1) 2025 , 06/05/2021, 03/21/2020, Additional history exists Preventative Visit-Managed Medicaid 07/21/2025 07/20/2024 DTAP/TDAP/TD VACCINES (3 - T d or Tdap) 05/08/2034 05/08/2024, 04/02/2013 Procedures Procedure Name Priority Date/Time Associated Diagnosis Comments POC URINALYSIS DIPSTICK AUTOMATED Routine 02/10/2025 4:13 PM CDT Dysuria XR CHEST PA OR AP 1 VW Stat 10:49 PM CDT BRAIN NATRIURETIC PEPTIDE, BNP OR PROBNP Stat 02/09/2025 10:47 PM CDT COMPREHENSIVE METABOLIC PANEL Stat 02/09/2025 10:47 PM CDT CBC WITH DIFFERENTIAL Stat 02/09/2025 10:47 PM CDT POC GLUCOSE Stat 02/09/2025 9:56 PM CDT POC GLUCOSE Stat 02/07/2025 3:13 PM CDT URINALYSIS W/REFLEX MICROSCOPIC Stat 02/07/2025 2:32 PM CDT POC GLUCOSE Stat 02/07/2025 1:49 PM CDT VITAMIN D 25 HYDROXY Stat 01/27/2025 12:50 PM CDT PTH INTACT Stat 01/27/2025 12:50 PM CDT T4 FREE Stat 01/27/2025 12:50 PM CDT DRUG SCREEN, URINE Stat 01/27/2025 12 :04 PM CDT URINALYSIS W/REFLEX MICROSCOPIC Stat 01/27/2025 12:[address] HEAD WO CONTRAST Stat 01/27/2025 1 1:50 AM CDT T3 Stat 01/27/2025 11:10 AM CDT MAGNESIUM LEVEL Stat 01/27/2025 11:10 AM CDT C-REACTIVE PROTEIN Stat 01/27/2025 11 :10 AM CDT LACTIC ACID Stat 01/27/2025 11:10 AM CDT TSH Stat 01/27/2025 11:10 AM CDT LIPASE Stat 01/27/2025 11:10 AM CDT COMPREHENSIVE METABOLIC PANEL Stat 01/27/2025 11:10 AM CDT SEDIMENTATION RATE Stat 01/27/2025 11 :10 AM CDT CBC WITH DIFFERENTIAL Stat 01/27/2025 11:10 AM CDT from Last 3 Months Results * (ABNORMAL) POC URINALYSIS DIPSTICK AUTOMATED (02/10/2025 4:13 PM CDT) COLOR UA POC Yellow Pale to Dark Yellow [facility] CLARITY UA POC Clear Clear, Other [facility] GLUCOSE UA POC Negative Negative, Normal [facility] BILIRUBIN UA POC Negative Negative [facility] KETONES [facility] Negative Negative [facility] SPECIFIC GRAVITY UA POC 1.025 1.000 - 1.030 [facility] BLOOD UA POC Trace(A) Negative [facility] PH UA POC 7.0 5.0 - 8.0 [facility] IC [facility] PROTEIN UA POC Negative Negative [facility] UROBILINOGEN UA POC 0.2 <2.0 mg/dL [facility] NITRITE UA POC Negative Negative [facility] LEUKOCYTE ESTERASE UA POC Negative Negative [facility] KIT LOT NUMBER POC [phone] [facility] KIT EXP DATE POC 01/28/[address] [facility] Urine 02/10/2025 4:13 PM CDT Griselda Garcia PROCESS HELPER POINT OF CARE TESTING Final Result [facility] CLIA# [id number] [address] [place] [address] * XR CHEST PA OR AP 1 [...] DIAGNOSTIC IMAGING ORDER CASPER Final Result * (ABNORMAL) CBC WITH DIFFERENTIAL (02/09/2025 10:47 PM CDT) Only the most recent of2 resultswithin the time period is included. WBC 9.1 4.2 - 9.1 K/uL 02/09/2025 11:01 PM [facility] RBC 5.40 4.63 - 6.08 M/uL 02/09/2025 11:01 PM [facility] HEMOGLOBIN 14.6 13.7 - 17.5 g/dL 02/09/2025 11:01 PM [facility] HEMATOCRIT 42.7 40.1 - 51.0 % 02/09/2025 11:01 PM [facility] MCV 79.1 79.0 - 92.2 fL 02/09/2025 11:01 PM [facility] MCH 27.0 25.7 - 32.2 pg 02/09/2025 11:01 PM [facility] MCHC 34.2 32.3 - 36.5 g/dL 02/09/2025 11:01 PM [facility] RDW 12.5 11.0 - 14.5 % 02/09/2025 11:01 PM [facility] RDW-STDEV 35.5(L) 36.9 - 56.9 fL 02/09/2025 11:01 PM [facility] PLATELETS 213 130 - 400 K/uL 02/09/2025 11:01 PM [facility] MPV 10.2 10.0 - 14.8 fL 02/09/2025 11:01 PM [facility] NEUTROPHILS 74(H) 34 - 68 % 02/09/2025 11:01 PM [facility] LYMPHOCYTES 18(L) 22 - 53 % 02/09/2025 11:01 PM [facility] MONOCYTES 6 5 - 12 % 02/09/2025 11:01 PM [facility] EOSINOPHILS 2 1 - 7 % 02/09/2025 11:01 PM [facility] BASOPHILS 0 0 - 1 % 02/09/2025 11:01 PM [facility] IMMATURE GRANULOCYTES 0 % 02/09/2025 11:01 PM [facility] NEUTROPHIL ABSOLUTE 6.73(H) 1.78 - 5.38 K/uL 02/09/2025 11:01 PM [facility] LYMPHOCYTE ABSOLUTE 1.65 1.20 - 3.40 K/uL 02/09/2025 11:01 PM [facility] MONOCYTE ABSOLUTE 0.56 0.30 - 0.82 K/uL 02/09/2025 11:01 PM [facility] EOSINOPHIL ABSOLUTE 0.14 0.04 - 0.54 K/uL 02/09/2025 11:01 PM [facility] BASOPHILS ABSOLUTE 0.04 0.01 - 0.08 K/uL 02/09/2025 11:01 PM [facility] IMMATURE GRANULOCYTES ABSOLUTE 0.02 K/uL 02/09/2025 11:01 PM [facility] Blood BLOOD SPECIMEN / Unknown Collection / Unknown 02/09/2025 10:47 PM CDT 02/09/2025 10:55 PM CDT Kaveh Christensen MD HEMATOLOGY ORDERABLES Fi nal Result Performing Organization Address [facility]/ZIP Co de Phone Number [facility] [id number] [address] [place] [address] * BRAIN NATRIURETIC PEPTIDE, BNP OR PROBNP (02/09/2025 10:47 PM CDT) PROBNP, N TERMINAL <36 0 - 125 pg/mL 02/09/2025 11:13 PM CDT [facility] Comment: INTERPRETIVE COMMENT based on [...] 10:47 PM CDT 02/09/2025 10:55 PM CDT Kaveh Christensen MD CHEMISTRY ORDERABLES Fin al Result Performing Organization Address City/[facility]/ZIP Co de Phone Number [facility] CLIA # [id number] [address] [place] [address] * (ABNORMAL) COMPREHENSIVE METABOLIC PANEL (02/09/2025 10:47 PM CDT) Only the most recent of2 resultswithin the time period is included. SODIUM 140 136 - 145 mmol/L 02/09/2025 11:13 PM CDT [facility] POTASSIUM 3.7 3.5 - 5.1 mmol/L 02/09/2025 11:13 PM [facility] CHLORIDE 102 98 - 107 mmol/L 02/09/2025 11:13 PM [facility] CO2 25 22 - 29 mmol/L 02/09/2025 11:13 PM [facility] CALCIUM 9.7 8.6 - 10.0 mg/dL 02/09/2025 11:13 PM [facility] BUN 15 6 - 20 mg/dL 02/09/2025 11:13 PM [facility] CREATININE 0.96 0.67 - 1.17 mg/dL 02/09/2025 11:13 PM [facility] GLUCOSE 106(H) 74 - 99 mg/dL 02/09/2025 11:13 PM [facility] TOTAL PROTEIN 7.4 6.6 - 8.7 g/dL 02/09/2025 11:13 PM [facility] ALBUMIN 4.9 3.5 - 5.2 g/dL 02/09/2025 11:13 PM [facility] BILIRUBIN TOTAL 0.4 0.0 - 1.2 mg/dL 02/09/2025 11:13 PM [facility] ALKALINE PHOSPHATASE 67 40 - 129 U/L 02/09/2025 11:13 PM [facility] AST 22 0 - 50 U/L 02/09/2025 11:13 PM [facility] ALT 29 0 - 50 U/L 02/09/2025 11:13 PM [facility] GFR >60 >=60 mL/min/1.7 3 sq meter 02/09/2025 11:13 PM [facility] Comment:eGFR calculated with 2020 CKD-EPI equation. Vegetarian diet, extremely high or low muscle mass, and may affect results. Cystatin C with Glomerular Filtration Rate is a suitable alternative for these patients. ANION GAP 13 5 - 20 mmol/L 02/09/2025 11:13 PM [facility] Blood BLOOD SPECIMEN / Unknown Collection / Unknown 02/09/2025 10:47 PM CDT 02/09/2025 10:55 PM CDT us Kaveh Christensen MD CHEMISTRY ORDERABLES Fin al Result Performing Organization Address [facility]/ZIP Co de Phone Number [facility] [id number] [address] [place] [address] * (ABNORMAL) POC GLUCOSE (02/09/2025 9:56 PM CDT) Only the most recent of3 resultswithin the time period is included. GLUCOSE POC 118(H) 74 - 99 mg/dL 02/09/2025 9:56 PM CDT [facility] SPECIMEN SOURCE, GLUCOSE POC Whole Blood 02/09/2025 9:56 PM CDT [facility] Blood, whole 02/09/2025 9:56 PM CDT 02/09/2025 10:04 PM CDT us Interface Provider Poct POINT OF CARE TESTING Fi nal Result Performing Organization Address [facility] Co de Phone Number [facility] [id number] [address] [place] [address] * URINALYSIS WITH REFLEX MICROSCOPIC (02/07/2025 2:32 PM CDT) Only the most recent of2 resultswithin the time period is included. COLOR UA Yellow Pale to Dark Yellow 02/07/2025 2:48 PM CDT [facility] CLARITY UA Clear Clear 02/07/2025 2:48 PM CDT [facility] SPECIFIC GRAVITY UA 1.010 1.003 - 1.035 02/07/2025 2:48 PM CDT [facility] PH UA 6.5 5.0 - 8.0 02/07/2025 2:48 PM CDT [facility] LEUKOCYTE ESTERASE UA Negative Negative 02/07/2025 2:48 PM CDT [facility] NITRITE UA Negative Negative 02/07/2025 2:48 PM CDT [facility] PROTEIN UA Negative Negative 02/07/2025 2:48 PM CDT [facility] GLUCOSE UA Negative Negative 02/07/2025 2:48 PM CDT [facility] KETONES UA Negative Negative 02/07/2025 2:48 PM CDT [facility] UROBILINOGEN UA 0.2 <2.0 mg/dL 2:48 PM CDT [facility] BILIRUBIN UA Negative Negative 02/07/2025 2:48 PM CDT [facility] BLOOD UA Negative Negative 02/07/2025 2:48 PM CDT [facility] Urine URINE SPECIMEN OBTAINED BY CLEAN CATCH PROCEDURE / Unknown 02/07/2025 2:32 PM CDT 02/07/2025 2:45 PM CDT us Yumiko Tabares PROCESS HELPER URINE ORDERABLES Final Resu lt Performing Organization Address [facility]/ZIP Co de Phone Number [facility] CLIA # [id number] [address] [place] [address] * VITAMIN D 25 HYDROXY (01/27/2025 12:50 PM CDT) Pathologist [facility] VITAMIN D TOTAL (25OH) 54 30 - 100 ng/mL 01/27/2025 5:54 PM CDT [facility] Blood BLOOD SPECIMEN / Unknown Collection / Unknown 01/27/2025 12:50 PM CDT 01/27/2025 12:55 PM CDT Narrative [facility] - 01/27/2025 5:54 PM CDT Interpretive Data Chart: Deficient: 0 - 20 ng/mL Insufficient: 21 - 29 ng/mL Sufficient: 30 - 100 ng/mL Increased Risk of Hypercalciuria: >100 ng/ml Toxic: >150 ng/ml us Filipe Johnson MD CHEMISTRY ORDERABLES Final Resu lt Performing Organization Address City/[facility]/ZIP Co de Phone Number [facility] CLIA # [id number] [address] [place], [place] [id number] * T4 FREE (01/27/2025 12:50 PM CDT) [facility] T4 FREE 1.35 0.81 - 1.70 ng/dL 01/27/2025 6:00 PM CDT [facility] Blood BLOOD SPECIMEN / Unknown Collection / Unknown 01/27/2025 12:50 PM CDT 01/27/2025 12:55 PM CDT us Filipe Johnson MD CHEMISTRY ORDERABLES Final Resu lt Performing Organization Address City/[facility]/ZIP Co de Phone Number [facility] CLIA # [id number] [address] [place] [address] * PTH INTACT (01/27/2025 12:50 PM CDT) [facility] PTH INTACT 37.4 17.9 - 58.6 pg/mL 01/27/2025 5:38 PM CDT [facility] Blood BLOOD SPECIMEN / Unknown Collection / Unknown 01/27/2025 12:50 PM CDT 01/27/2025 12:55 PM CDT us Filipe Johnson MD CHEMISTRY ORDERABLES Final Resu lt Performing Organization Address City/[facility]/ZIP Co de Phone Number [facility] CLIA # [id number] [address] [place] [address] * (ABNORMAL) DRUG SCREEN, URINE (01/27/2025 12:04 PM CDT) [facility] CANNABINOIDS QUAL, URINE Presumptive Positive(A) Negative 01/27/2025 12:30 PM CDT [facility] PCP QUAL, URINE Negative Negative 12:30 PM CDT [facility] COCAINE QUAL URINE Negative Negative 2024 12:30 PM CDT [facility] METHAMPHETAMINE QUAL, URINE Negative Negative 01/27/2025 12:30 PM CDT [facility] OPIATE QUAL, URINE Negative Negative 2024 12:30 PM CDT [facility] AMPHETAMINE QUAL, URINE Negative Negative 01/27/2025 12:30 PM CDT [facility] BENZODIAZEPINE QUAL, URINE Negative Negative 01/27/2025 12:30 PM CDT [facility] TRICYCLICS QUAL, URINE Negative Negative 01/27/2025 12:30 PM CDT [facility] METHADONE QUAL, URINE Negative Negative 01/27/2025 12:30 PM CDT [facility] BARBITURATE QUAL, URINE Negative Negative 01/27/2025 12:30 PM CDT [facility] OXYCODONE QUAL, URINE Negative Negative 01/27/2025 12:30 PM CDT [facility] Urine URINE SPECIMEN OBTAINED BY CLEAN CATCH PROCEDURE / Unknown Collection / Unknown 01/27/2025 12:04 PM CDT 01/27/2025 12:13 PM CDT Narrative [facility] - 01/27/2025 12:30 PM CDT This test is a qualitative screen. The presumptive positive results should not be used for legal purposes. If confirmation of results is desired, the lab must be contacted without delay. Drug Screening Threshold Amphetamines 500 ng/mL Barbiturates 200 ng/mL Benzodiazepines 150 ng/mL Cocaine Metabolites 150 ng/mL Methamphetamine 500 ng/mL Methadone 200 ng/mL Opiates 100 ng/mL Oxycodone 100 ng/mL Phencyclidine 25 ng/mL THC Cannabinoids 50 ng/mL Tricyclic Antidepressants 300 ng/mL us Filipe Johnson MD URINE ORDERABLES Final Result [facility] CLIA # [id number] [address] [place] [address] * CT HEAD WO CONTRAST (01/27/2025 11:50 AM CDT) Anatomical Region Laterality Modality Head Computed Tomogra phy 01/27/2025 11:3 8 AM CDT Impressions 01/27/2025 12:02 PM CDT IMPRESSION: No evidence of an acute intracranial process. Narrative 01/27/2025 12:02 PM CDT EXAM: CT HEAD WO CONTRAST DATE/TIME OF EXAM: 01/27/2025 11:50 AM REASON FOR STUDY: vertigo with nausea progressively worsening over a month. central virtigo symptoms. DIAGNOSIS: See Reason for Exam COMPARISON: None Available TECHNIQUE: CT head performed without contrast. FINDINGS: No evidence of an acute territorial infarct, parenchymal hemorrhage, hydrocephalus or abnormal extra-axial fluid collection. No midline shift. Basilar cisterns remain patent. No mastoid effusion. Mucous retention cysts in the partially imaged right maxillary sinus. No calvarial fracture. Procedure Note TemoGrupo MD - 01/27/2025 EXAM: CT HEAD WO CONTRAST DATE/TIME OF EXAM: 01/27/2025 11:50 AM REASON FOR STUDY: vertigo with nausea progressively worsening over a month. central virtigo symptoms. DIAGNOSIS: See Reason for Exam COMPARISON: None Available TECHNIQUE: CT head performed without contrast. FINDINGS: No evidence of an acute territorial infarct, parenchymal hemorrhage, hydrocephalus or abnormal extra-axial fluid collection. No midline shift. Basilar cisterns remain patent. No mastoid effusion. Mucous retention cysts in the partially imaged right maxillary sinus. No calvarial fracture. IMPRESSION: No evidence of an acute intracranial process. us Filipe Johnson MD CT ORDERABLES Final Result * LACTIC ACID (01/27/2025 11:10 AM CDT) LACTIC ACID 0.8 <=2.0 mmol/L 01/27/2025 11:46 AM CDT [facility] Blood BLOOD SPECIMEN / Unknown Collection / Unknown 01/27/2025 11:10 AM CDT 01/27/2025 11:30 AM CDT us Filipe Johnson MD CHEMISTRY ORDERABLES Final Resu lt [facility] CLIA # [id number] [address] [place] [address] * SEDIMENTATION RATE (01/27/2025 11:10 AM CDT) Pathologist [facility] ESR (SEDIMENTATION RATE) 3 0 - 15 mm/Hr 01/27/2025 11:41 AM CDT [facility] Blood Collection / Unknown 01/27/2025 11:10 AM CDT 01/27/2025 11:30 AM CDT Narrative [facility] - 01/27/2025 11:41 AM CDT Tube Lot: #[id number] Exp Date: 06/30/2026 QC1 LOT [id number] EXP.07/05/2025 QC2 LOT [id number] EXP.07/05/2025 us Filipe Johnson MD HEMATOLOGY ORDERABLES Final Res ult Performing Organization Address [facility]/ZIP Co de Phone Number [facility] [id number] [address] [place] [address] * C-REACTIVE PROTEIN (01/27/2025 11:10 AM CDT) [facility] CRP <3.0 <5.0 mg/L 01/27/2025 11:52 AM CDT [facility] Blood Collection / Unknown 01/27/2025 11:10 AM CDT 01/27/2025 11:30 AM CDT us Filipe Johnson MD CHEMISTRY ORDERABLES Final Resu lt [facility] CLIA # [id number] [address] [place] [address] * T3 (01/27/2025 11:10 AM CDT) Pathologist [facility] T3 112 76 - 181 ng/dL 01/28/2025 8:48 AM CDT [facility] Blood BLOOD SPECIMEN / Unknown Collection / Unknown 01/27/2025 11:10 AM CDT 01/27/2025 12:31 PM CDT Narrative [facility] - 01/28/2025 8:48 AM CDT Performing Organization Information: Site ID: [place] Name: [facility] Address: [address] [place] [address] Director: Eliecer Patel MD us Filipe Johnson MD CHEMISTRY ORDERABLES Final Resu lt Performing Organization Address City/[facility]/ZIP Co de Phone Number [facility] [phone] * TSH (01/27/2025 11:10 AM CDT) TSH 0.82 0.27 - 4.20 uIU/mL 01/27/2025 11:52 AM CDT [facility] Blood Collection / Unknown 01/27/2025 11:10 AM CDT 01/27/2025 11:30 AM CDT us Filipe Johnson MD CHEMISTRY ORDERABLES Final Resu lt Performing Organization Address [facility] Phone Number [facility] CLIA # [id number] [address] [place] [address] * MAGNESIUM LEVEL (01/27/2025 11:10 AM CDT) MAGNESIUM 2.2 1.6 - 2.6 mg/dL 01/27/2025 11:52 AM CDT [facility] Blood Collection / Unknown 01/27/2025 11:10 AM CDT 01/27/2025 11:30 AM CDT us Filipe Johnson MD CHEMISTRY ORDERABLES Final Resu lt Performing Organization Address [facility] Co de Phone Number [facility] CLIA # [id number] [address] [place] [address] * LIPASE (01/27/2025 11:10 AM CDT) LIPASE 24 13 - 60 U/L 01/27/2025 11:52 AM CDT [facility] Blood Collection / Unknown 01/27/2025 11:10 AM CDT 01/27/2025 11:30 AM CDT us Filipe Johsnon MD CHEMISTRY ORDERABLES Final Resu lt [facility] CLIA # [id number] [address] [address] from Last 3 Months Insurance [facility] MEDICAID Care Teams Senior Group Manager Relationship Specialty Start Date End Date Jewel Ceballos MD [address] [phone] PCP - General Family Practice 06/17/24
--- OUTSIDE RECORDS SUMMARY | 2025-02-10 23:06 | XMS_ITS | Encounter Summary ---
Author Organization [facility] Address [address] 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 Gender Identity Not on file Sexual Orientation Not on file documented as of this encounter Plan of Treatment Upcoming Encounters Date Type Department Care Team (Late st Contact Info) Description 02/12/2025 11:20 AM CDT Office Visit [facility] [address] [place] [address] Gabby Núñez NP [address] [place] [address] documented as of this encounter Visit Diagnoses Not on filedocumented in this encounter Care Teams Editor Dictionary Relationship Specialty Start Date End Date Jewel Ceballos MD [address] [place] [phone] PCP - General Family Practice 06/17/24 documented as of this encounter
--- OUTSIDE RECORDS SUMMARY | 2025-02-10 23:06 | XMS_ITS | Encounter Summary ---
Author Organization [facility] Address [address] [place] [address] Care Team Providers Care Research Associate Policy Name Role Phone Jewel Ceballos MD Primary Care Provider [phone] [phone] Encounter Details Date Type Department Care Team (Late st Contact Info) Description 02/03/2025 External Device Data [place] ABSTRACTION Provider, Abstract NO ADDRESS ON FILE Social History Tobacco Use Types Packs/Day Years Used Date Smoking Tobacco: Never Smokeless Tobacco: Former Chew Alcohol Use Standard Drinks/Week Comments Never 0 (1 standard drink = 0.6 oz pur e alcohol) Sex and Gender Information Value Date Recorded Sex Assigned at Not on file 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 Gender Identity Not on file Sexual Orientation Not on file documented as of this encounter Plan of Treatment Upcoming Encounters Date Type Department Care Team (Late st Contact Info) Description 02/12/2025 11:20 AM CDT Office Visit [facility] [address] [place] [address] Gabby Núñez NP [address] [place] [address] documented as of this encounter Visit Diagnoses Not on filedocumented in this encounter Care Teams Research Associate Policy Relationship Specialty Start Date End Date Jewel Ceballos MD [address] [address] [place] [address] PCP - General Family Practice 06/17/24 documented as of this encounter
--- OUTSIDE RECORDS SUMMARY | 2025-02-10 23:06 | XMS_ITS | Encounter Summary ---
Author Organization [facility] Address 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 Gender Identity Not on file Sexual Orientation Not on file documented as of this encounter Plan of Treatment Upcoming Encounters Date Type Department Care Team (Late st Contact Info) Description 02/12/2025 11:20 AM CDT Office Visit [facility] [address] [place] [address] Gabby Núñez NP [address] [place] [address] documented as of this encounter Visit Diagnoses Not on filedocumented in this encounter Care Teams Matcher Operator Relationship Specialty Start Date End Date Jewel Ceballos MD [address] [facility] [address] [address] [place] [address] PCP - General Family Practice 06/17/24 documented as of this encounter
--- OUTSIDE RECORDS SUMMARY | 2025-02-10 23:06 | XMS_ITS | Encounter Summary ---
Author Organization [facility] Address [address] 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 [address] [place] [address] Gabby Núñez NP [address] [place] [address] documented as of this encounter Visit Diagnoses Not on filedocumented in this encounter Care Teams Electronic Commerce Specialist Relationship Specialty Start Date End Date Jewel Ceballos MD [address] [place] [address] PCP - General Family Practice 06/17/24 documented as of this encounter
--- OUTSIDE RECORDS SUMMARY | 2025-02-10 23:06 | XMS_ITS | Encounter Summary ---
Author Organization [facility] Address [address] [place] [address] Care Team Providers Care Grease Monkey Name Role Phone Jewel Ceballos MD Primary Care Provider [phone] Reason for Visit * Reason Comments Wants Appointment Encounter Details Date Type Department Care Team (Late st Contact Info) Description 02/10/2025 Telephone [facility] [address] [address] Jewel Ceballos MD [facility] [address] [address] Wants Appointment Social History Tobacco Use Types Packs/Day Years Used Date Smoking Tobacco: Never Smokeless Tobacco: Current Chew Comments:Zyn pouches Alcohol Use Standard Drinks/Week Comments Never 0 (1 standard drink = 0.6 oz pur e alcohol) Sex and Gender Information Value Date Recorded Sex Assigned at Not on file 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 Pt verbalized concerns about dizziness and issues with blood sugars and I advised him to seek care at the walk in clinic if these symptoms persist before his appointment. Pt was agreeable to this. Ashlee * Telephone Encounter - David Goddard - 02/10/2025 8:18 AM CDT Copied from [facility] #[id number]. Topic: Established Patient Care >> Feb 10, 2025 8:11 AM David Solis wrote: Is the patient established with a [facility] provider? Yes, select appropriate option in Discharge Facility SmartList Caller Name: Harjit Santana Callback Number: [phone] Call Notes: Hospital follow up. No appointments available in the time window Please call back if can be squeezed in before appointment Patient is Low Risk Where was the patient discharged from? Emergency Department (ED/ER) Is there availability to schedule the patient within 5 calendar days of discharge? No, in person appointment not available or call came after 5 days of discharge documented in this encounter Plan of Treatment Upcoming Encounters Date Type Department Care Team (Late st Contact Info) Description 02/12/2025 11:20 AM CDT Office Visit [facility] [address] [place] [address] Gabby Núñez NP [address] [place] [address] documented as of this encounter Visit Diagnoses Not on filedocumented in this encounter Care Teams Grease Monkey Relationship Specialty Start Date End Date Jewel Ceballos MD [address] [facility] [address] [place] [address] PCP - General Family Practice 06/17/24 documented as of this encounter
--- OUTSIDE RECORDS SUMMARY | 2025-02-10 23:06 | XMS_ITS | Encounter Summary ---
Author Organization [facility] Address [address] [place] [address] Care Team Providers Care Manager Of Employee Relations Name Role Phone Jewel Ceballos MD Primary Care Provider [phone] [phone] Encounter Details Date Type Department Care Team (Late Contact Info) Description 01/28/2025 Results Follow-Up [facility] Emergency Medicine [address] [id number] Alessia Madrid RN T4 FREE, PTH INTACT, VITAMIN D 25 HYDROXY, T3 Social History Tobacco Use Types Packs/Day Years Used Date Smoking Tobacco: Never Smokeless Tobacco: Former Chew Alcohol Use Standard Drinks/Week Comments Never 0 (1 standard drink = 0.6 oz pur e alcohol) Sex and Gender Information Value Date Recorded Sex Assigned at Not on file 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 Gender Identity Not on file Sexual Orientation Not on file documented as of this encounter Plan of Treatment Upcoming Encounters Date Type Department Care Team (Late Contact Info) Description 02/12/2025 11:20 AM CDT Office Visit [facility] [address] [place] [address] Gabby Núñez NP [address] [place] [address] documented as of this encounter Visit Diagnoses Not on filedocumented in this encounter Care Teams Manager Of Employee Relations Relationship Specialty Start Date End Date Jewel Ceballos MD [address] [facility] [address] [place] [address] PCP - General Family Practice 06/17/24 documented as of this encounter
--- OUTSIDE RECORDS SUMMARY | 2025-02-10 23:06 | XMS_ITS | Encounter Summary ---
Author Organization [facility] Address 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 Gender Identity Not on file Sexual Orientation Not on file documented as of this encounter Plan of Treatment Upcoming Encounters Date Type Department Care Team (Late st Contact Info) Description 02/12/2025 11:20 AM CDT Office Visit [facility] [address] [place] [address] Gabby Núñez NP [address] [place] [address] documented as of this encounter Visit Diagnoses Not on filedocumented in this encounter Care Teams Vice President Of Engineering Relationship Specialty Start Date End Date Jewel Ceballos MD [address] [facility] [address] [place] [address] PCP - General Family Practice 06/17/24 documented as of this encounter
[2025-02-10 23:09] VITALS: BP 126/91; PULSE 55; RESP 15; O2SAT 97
[2025-02-10 23:30] VITALS: BP 125/78; PULSE 47; O2SAT 93
--- NOTE | 2025-02-10 23:32 | ECG_ITS ---
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
--- NOTE | 2025-02-10 23:32 | W.ED.GENADLT ---
HPI - General Adult General: Chief complaint: Recheck/Abnormal Lab/Rx Stated complaint: low BS high Blood pressure Time Seen by Provider: 02/10/25 22:56 Source: patient Mode of arrival: ambulatory Limitations: no limitations History of Present Illness: Patient is a nice 29-year-old male who presents to ED today with significant other for evaluation of fluctuating blood pressures and blood sugars at home over the past week or so. Patient has no known past medical history. He states over the past week or so he has had intermittent episodes where he has felt off . He states he will check his blood pressures at home and sometimes they will run up to 180s systolic. He states they will come down on their own without intervention. Upon arrival to the emergency department and during my exam with patient, his blood pressure is 126/91. Patient states he feels perfectly fine at this time. He states he has also had fluctuating blood sugars. Last week he reportedly had an episode where he passed out and had a blood sugar in the 50s. He states he is not a known diabetic. States he has been keeping a log of his blood sugars over the past 48 hours and they have ran anywhere from 80-130. Patient states he has been seen at [facility] several times over the past 1 to 2 weeks for symptoms. He has followed up with primary care, Dr. Juarez with plan for Holter monitor. He does tell me over the past 3 weeks he has stopped taking creatine and cut out cannabis use as well as nicotine use. States he does not frequently drink alcohol. Reports very minimal caffeine use. No energy drinks. Denies drug use. Denies supplements apart from the creatine that he stopped about 3 weeks ago. Onset (ago): day(s) Relieving factors: none Exacerbating factors: none Associated symptoms: Reports palpitations (intermittent); Deny chest pain, dyspnea, headache(s), malaise, rash or syncope Treatments prior to arrival: none Related Data Allergies Allergy/AdvReac Type Severity Reaction Status Date / Time No Known Allergies Allergy Verified 02/10/25 20:52 Review of Systems Const: Denies: fever(s), chills, body aches, fatigue or malaise Card: Reports: palpitations (intermittent); Denies: chest pain, irregular heart rhythm, edema, swelling of feet/ankles, lightheadedness, syncope, pre-syncope, dyspnea on exertion, orthopnea, leg pain with exertion or acrocyanosis Resp: Denies: dyspnea GI: Denies: abdominal pain Musc: Denies: neck pain, back pain, extremity pain, extremity swelling, joint pain or joint swelling Skin/Breast: Denies: rash Neuro: Denies: headache(s), numbness in extremities, weakness in extremities, sensory changes or dizziness Physical Exam Const: COMMON NORMALS: no acute distress, average body habitus, patient oriented x3, no limitations, healthy appearing, alert and well nourished GENERAL APPEARANCE: cooperative ORIENTATION/CONSCIOUSNESS: Yes awake, Yes oriented to person, Yes oriented to place and Yes oriented to time HENMT: COMMON NORMALS: normocephalic and atraumatic HEAD & SCALP: normocephalic and atraumatic Neck/C-Spine: GENERAL: Yes normal visual inspection Resp: COMMON NORMALS: normal respiratory effort and clear to auscultation bilaterally AUSCULTATION: clear to auscultation bilaterally Cardio: COMMON NORMALS: regular rate and regular rhythm RATE: regular rate RHYTHM: regular rhythm Extremity: COMMON NORMALS: normal to inspection Neuro: LILIA COMA SCALE: document GCS findings Homer coma scale eye opening: Spontaneous Lilia coma scale verbal response: Orientated Homer coma scale motor response: Obey commands Lilia coma scale total score: 15 COMMON NORMALS: patient oriented x3, moves all extremities, no focal motor deficits and no sensory deficits noted SENSORIUM/ORIENTATION: Yes alert, Yes oriented to person, Yes oriented to place and Yes oriented to time Skin: COMMON NORMALS: no rashes or lesions noted GENERAL SKIN EXAM: no rashes or lesions noted Course Vital Signs: Vital signs: Vital Signs Temperature 98.2 F 02/10/25 20:39 Pulse Rate 55 L 02/10/25 23:09 Respiratory Rate 15 02/10/25 23:09 Blood Pressure 126/91 02/10/25 23:09 Pulse Oximetry 97 02/10/25 23:09 Oxygen Delivery Me thod Room Air 02/10/25 20:39 [facility] - General Adult Medical Decision Making Patient states during my exam that he is completely asymptomatic. Blood sugars and blood pressures here have been normal. Remainder of his emergency workup is unremarkable including further labs including troponin, CXR, and EKG. He is motivated to continue to follow-up with his primary care provider. Broad differential including anxiety, creatine/cannabis/nicotine withdrawal, physiologic response. I feel from the emergency department, he is stable for discharge. Return ED precautions discussed. Medical Records I reviewed the patient's medical records. Lab Data I reviewed the patient's lab results. 02/10/25 21:44 02/10/25 21:44 Radiology Impressions Chest X-Ray 02/10/25 21:32 IMPRESSION: No acute findings. Laboratory Results WBC 8.05 10^3/uL (3.29-11.43) 02/10/25 21:44 RBC 5.34 10^6/uL (3.85-5.65) 02/10/25 21:44 Hgb 15.00 g/dL (11.27-16.99) 02/10/25 21:44 Hct 43.9 % (37-53) 02/10/25 21:44 MCV 82.2 fl (82-101) 02/10/25 21:44 MCH 28.1 pg (27-33) 02/10/25 21:44 MCHC 34.2 g/dL (30-55) 02/10/25 21:44 RDW 12.4 % (12.1-15.1) 02/10/25 21:44 Plt Count 203 10^3/cmm (157-399) 02/10/25 21:44 MPV 10.0 fL (7.4-10.4) 02/10/25 21:44 Neut % (Auto) 60.0 % 02/10/25 21:44 Lymph % (Auto) 28.4 % 02/10/25 21:44 Brooks % (Auto) 8.7 % 02/10/25 21:44 Eos % (Auto) 2.4 % 02/10/25 21:44 Baso % (Auto) 0.4 % 02/10/25 21:44 Neut # (Auto) 4.83 10^3/uL (1.8-7.7) 02/10/25 21:44 Lymph # (Auto) 2.3 10^3/uL (0.8-4.8) 02/10/25 21:44 Brooks # (Auto) 0.7 10^3/uL (0.2-0.9) 02/10/25 21:44 Eos # (Auto) 0.2 10^3/uL (0.0-0.8) 02/10/25 21:44 Baso # (Auto) 0.0 10^3/uL (0.0-0.1) 02/10/25 21:44 Nucleated RBC % (auto) 0 % 02/10/25 21:44 Nucleated RBCs # 0.0 /100WBC 02/10/25 21:44 Sodium 141 mmol/L (136-145) 02/10/25 21:44 Potassium 4.3 mmol/L (3.5-5.1) 02/10/25 21:44 Chloride 103 mmol/L (98-107) 02/10/25 21:44 Carbon Dioxide 28 mmol/L (22-29) 02/10/25 21:44 Anion Gap 14.3 (5-19) 02/10/25 21:44 BUN 10 mg/dL (6-20) 02/10/25 21:44 Creatinine 1.0 mg/dL (0.7-1.2) 02/10/25 21:44 GFR Calculation 88.3 mL/min (90-130) L 02/10/25 21:44 Glucose 97 mg/dL (65-115) 02/10/25 21:44 POC Glucose 143 mg/dL (70-110) H 02/10/25 22:16 Calculated Osmolality 291 mOsm/kg (285-295) 02/10/25 21:44 Calcium 9.5 mg/dL (8.5-10.5) 02/10/25 21:44 Total Bilirubin 0.5 mg/dL (0.15-1.2) 02/10/25 21:44 AST 15 U/L (0-40) 02/10/25 21:44 ALT 23 U/L (0-41) 02/10/25 21:44 Alkaline Phosphatase 67 U/L (40-130) 02/10/25 21:44 Troponin T Baseline < 6 ng/L (0-15) 02/10/25 21:44 Troponin T 120 Minute < 6.0 ng/L (0-15) 02/10/25 23:07 Delta Troponin T 0 ABS# (0-10) 02/10/25 23:07 Total Protein 7.2 g/dL (6.6-8.7) 02/10/25 21:44 Albumin 4.9 g/dL (3.5-5.2) 02/10/25 21:44 Globulin 2.3 g/dL (1.3-4.6) 02/10/25 21:44 All radiology interpretation(s) finalized by discharge Discharge Plan Discharge Patient Disposition: Home Clinical Impression: Fluctuating blood pressure Condition: Stable Discharge Orders: Discharge ED (Routine); Ordered 02/10/25 Ordered By: Griselda Arredondo Referrals: Jewel Ceballos [Primary Care Provider, [facility]] Patient Instructions: Patient Portal & Bella Instructions Activity Restrictions/Additional Instructions: As we discussed, it is reasonable to continue follow-up with your primary care provider for further evaluation. Your workup here in the emergency department fortunately was unremarkable. Print Language: Uzbek Coding Level of Care Code ED Bandoleer Straightener Stamper for Jimena Ghosh
[2025-02-10 23:43] LABS: Troponin 5 2HR < 6.0 ng/L (0-15); Troponin 5 2HR Delta 0 ABS# (0-10)
[2025-02-10 23:48] VITALS: BP 125/78; PULSE 50; O2SAT 93
== END 2025-02-10 23:52 | disposition home or self-care (01) ==
PROVIDERS: Emergency Provider Physician Assistant; PCP Family Medicine
DX: R03.0 Elevated blood-pressure reading, without diagnosis of hypertension (principal)
CPT/HCPCS: 36415; 36416; 71045; 80053; 82962; 84484; 85025; 93005; 99285